=== PATIENT | male | born 1945 | race Caucasian/White ===

== ENCOUNTER 2019-07-08 08:59 | Emergency (ER) | payer OTHER ==
--- NOTE | 2019-07-08 10:16 | RAD REPORT ---
EXAM DESCRIPTION: CT - Head Brain Wo Cont - 07/08/2019 9:18 am CLINICAL HISTORY: Trip and fall, head trauma COMPARISON: None. TECHNIQUE: Axial 5 mm thick images of the head were obtained without IV contrast. All CT scans are performed using dose optimization technique as appropriate and may include automated exposure control or mA/KV adjustment according to patient size. FINDINGS: No intracranial hemorrhage, mass, edema or shift of mid-line structures. No acute infarcti on changes seen. No cortical edema or sulcal effacement. Moderate atrophy changes are present. Mild t o moderate chronic ischemic changes are seen. Ventricles are in proportion to volume loss. Dense jayson rial tree calcifications are present. Mastoid air cells are clear. Patchy mucosal thickening in the paranasal sinuses. All No acute bony findings. Small midline posterior parietal scalp hematoma. Underlying bone is intact. IMPRESSION: No hemorrhage, mass or acute intracranial finding. Patient has moderate atrophy changes and mild to moderate chronic ischemic change. Chronic ischemic change can mask nonhemorrhagic CVA. Follow-up MR imaging could be performed if an is chemic event is suspected to have triggered the fall. Posterior midline scalp hematoma with underlying bone intact.
--- NOTE | 2019-07-08 10:58 | ER ---
Nurse's Notes [facility] Name: Poncho Hardy Jr Age: 74 yrs Sex: Male : 1945 Arrival Date: 07/08/2019 Time: 09:02 Bed 8 Private MD: Diagnosis: Laceration without foreign body of scalp Presentation: 07/08 09:04 Presenting complaint: EMS states: pt was at the [facility] in the bathroom, tripped over tw2 his feet, fell hit the back of his head on the floor, [facility] reports 7cm laceration to the back of head, no loc. Transition of care: patient was not received from another setting of care. Onset of symptoms was July 08, 2019. Risk Assessment: Do you want to hurt yourself or someone else? Patient reports no desire to harm self or others. Initial Sepsis Screen: Does the patient meet any 2 criteria? No. Patient's initial sepsis screen is negative. Does the patient have a suspected source of infection? No. Patient's initial sepsis screen is negative. Care prior to arrival: head wrapped with francois. 09:04 Method Of Arrival: EMS: [facility] tw2 09:04 Acuity: BALDEMAR 3 tw2 Triage Assessment: 09:07 General: Appears in no apparent distress. Behavior is calm, cooperative, appropriate tw2 for age. Pain: Complains of pain in scalp. Historical: - Allergies: 10:06 No Known Allergies; tw2 - Home Meds: 10:06 amlodipine 10 mg tab 1 tab once daily [Active]; atorvastatin 80 mg oral tab 1 tab once tw2 daily [Active]; cyanocobalamin (vitamin B-12) 500 mcg oral tab [Active]; divalproex 500 mg oral TbEC 1 tab 3 times per day [Active]; ergocalciferol (vitamin D2) 50,000 unit oral cap 1 cap once wkly [Active]; glipizide 10 mg Oral tab 1 tab once daily [Active]; lisinopril 40 mg Oral tab 1 tab once daily [Active]; metformin 500 mg Oral Tb24 1 tab once daily [Active]; metoprolol tartrate 100 mg Oral tab 1 tab 2 times per day [Active]; aspirin 81 mg Oral chew 1 tab once daily [Active]; - PMHx: 10:06 CVA; Hyperlipidemia; Hypertension; AAA; Bipolar disorder; Diabetes - NIDDM; tw2 - Immunization history:: Adult Immunizations. - Social history:: Smoking status: . - Ebola Screening: : Patient denies travel to an Ebola-affected area in the 21 days before illness onset. Screenin:07 Abuse screen: Denies threats or abuse. Nutritional screening: No deficits noted. tw2 Tuberculosis screening: No symptoms or risk factors identified. Fall Risk Secondary diagnosis (15 points) impaired mobility. Assessment: 09:04 General: Appears in no apparent distress. Behavior is calm, cooperative, appropriate tw2 for age. Pain: Complains of pain in scalp. Neuro: Level of Consciousness is awake, alert, obeys commands, Oriented to person, place, time, situation. Cardiovascular: Heart tones S1 S2 Patient's skin is warm and dry. Respiratory: Airway is patent Respiratory effort is even, unlabored, Respiratory pattern is regular, symmetrical, Breath sounds are clear bilaterally. GI: No signs and/or symptoms were reported involving the gastrointestinal system. Abdomen is flat, Bowel sounds present X 4 quads. : No signs and/or symptoms were reported regarding the genitourinary system. EENT: No signs and/or symptoms were reported regarding the EENT system. Derm: No signs and/or symptoms reported regarding the dermatologic system. Musculoskeletal: Range of motion: intact in all extremities. Injury Description: Laceration sustained to scalp is clean, 2.6 to 7.5 cm long, was sustained 30-60 minutes ago. 10:06 Reassessment: Patient appears in no apparent distress at this time. No changes from tw2 previously documented assessment. Patient and/or family updated on plan of care and expected duration. Pain level reassessed. Patient is alert, oriented x 3, equal unlabored respirations, skin warm/dry/pink. 10:38 Reassessment: Patient appears in no apparent distress at this time. No changes from tw2 previously documented assessment. Patient and/or family updated on plan of care and expected duration. Pain level reassessed. Patient is alert, oriented x 3, equal unlabored respirations, skin warm/dry/pink. 10:57 Reassessment: Patient appears in no apparent distress at this time. No changes from tw2 previously documented assessment. Patient and/or family updated on plan of care and expected duration. Pain level reassessed. Patient is alert, oriented x 3, equal unlabored respirations, skin warm/dry/pink. Vital Signs: 09:06 BP 142 / 64; Pulse 64; Resp 17; Temp 97.9(TE); Pulse Ox 94% on R/A; Weight 90.72 kg tw2 (R); Height 5 ft. 10 in. (177.80 cm); Pain 8/10; 10:06 BP 137 / 63; Pulse 62; Resp 17; Pulse Ox 96% on R/A; tw2 10:38 BP 149 / 70; Pulse 63; Resp 17; Pulse Ox 96% on R/A; tw2 09:06 Body Mass Index 28.70 (90.72 kg, 177.80 cm) tw2 ED Course: 09:02 Patient arrived in ED. jl7 09:04 Shantel Boyle, RN is Primary Nurse. tw2 09:04 Bed in low position. Call light in reach. Side rails up X2. quality assurance monitor body on. Pulse tw2 ox on. NIBP on. 09:06 Triage completed. tw2 09:06 Cosme Lovell PA is PHCP. tw2 09:06 Arm band placed on. tw2 09:27 CT Head Brain wo Cont In Process Unspecified. EDMS 10:37 cleaning of wound and stapling, pt tolerated well. Patient did not have IV access tw2 during this emergency room visit. Dressings: Francois x 1 scalp 4X4s X 4; scalp. 10:47 Anand Lainez MD is Attending Physician. jr8 Administered Medications: No medications were administered Outcome: 10:46 Discharge ordered by . jr8 10:56 Discharged to home via wheelchair, with family. tw2 10:56 Condition: stable 10:56 Discharge instructions given to patient, family, Instructed on discharge instructions, follow up and referral plans. medication usage, wound care, staple removal, return to PCP or ER for suture removal in 10 days. Demonstrated understanding of instructions, follow-up care, medications, wound care, Prescriptions given X 1. 10:57 Patient left the ED. tw2 Signatures: Dispatcher [employer] EDMS Cosme Lovell PA PA jr8 Shantel Boyle RN RN tw2 Jodi Hyde RN RN jl7
--- NOTE | 2019-07-08 10:58 | EDPHYS ---
Physician Documentation [facility] Name: Poncho Hardy Jr Age: 74 yrs Sex: Male : 1945 Arrival Date: 07/08/2019 Time: 09:02 Bed 8 Private MD: ED Physician Anand Lainez HPI: 07/08 10:39 This 74 yrs old Male presents to ER via EMS with complaints of Fall Injury. jr8 10:39 Details of fall: The patient fell from an upright position, while standing. Onset: The jr8 symptoms/episode began/occurred acutely, today. Associated injuries: The patient sustained injury to the head, laceration, swelling, tenderness. Severity of symptoms: At their worst the symptoms were moderate, in the emergency department the symptoms are unchanged. The patient has not experienced similar symptoms in the past. The patient has not recently seen a physician. Stated that he misstepped and fell backwards hitting back of head causing laceration. Denies LOC . Historical: - Allergies: 10:06 No Known Allergies; tw2 - Home Meds: 10:06 amlodipine 10 mg tab 1 tab once daily [Active]; atorvastatin 80 mg oral tab 1 tab once tw2 daily [Active]; cyanocobalamin (vitamin B-12) 500 mcg oral tab [Active]; divalproex 500 mg oral TbEC 1 tab 3 times per day [Active]; ergocalciferol (vitamin D2) 50,000 unit oral cap 1 cap once wkly [Active]; glipizide 10 mg Oral tab 1 tab once daily [Active]; lisinopril 40 mg Oral tab 1 tab once daily [Active]; metformin 500 mg Oral Tb24 1 tab once daily [Active]; metoprolol tartrate 100 mg Oral tab 1 tab 2 times per day [Active]; aspirin 81 mg Oral chew 1 tab once daily [Active]; - PMHx: 10:06 CVA; Hyperlipidemia; Hypertension; AAA; Bipolar disorder; Diabetes - NIDDM; tw2 - Immunization history:: Adult Immunizations. - Social history:: Smoking status: . - Ebola Screening: : Patient denies travel to an Ebola-affected area in the 21 days before illness onset. ROS: 10:39 Eyes: Negative for injury, pain, redness, and discharge, ENT: Negative for injury, jr8 pain, and discharge, Neck: Negative for injury, pain, and swelling, Cardiovascular: Negative for chest pain, palpitations, and edema, Respiratory: Negative for shortness of breath, cough, wheezing, and pleuritic chest pain, Abdomen/GI: Negative for abdominal pain, nausea, vomiting, diarrhea, and constipation, Back: Negative for injury and pain, MS/Extremity: Negative for injury and deformity, Neuro: Negative for headache, weakness, numbness, tingling, and seizure. 10:39 Skin: Positive for laceration(s), of the scalp. Exam: 10:39 Eyes: Pupils equal round and reactive to light, extra-ocular motions intact. Lids and jr8 lashes normal. Conjunctiva and sclera are non-icteric and not injected. Cornea within normal limits. Periorbital areas with no swelling, redness, or edema. ENT: Nares patent. No nasal discharge, no septal abnormalities noted. Tympanic membranes are normal and external auditory canals are clear. Oropharynx with no redness, swelling, or masses, exudates, or evidence of obstruction, uvula midline. Mucous membranes moist. Neck: Trachea midline, no thyromegaly or masses palpated, and no cervical lymphadenopathy. Supple, full range of motion without nuchal rigidity, or vertebral point tenderness. No Meningismus. Cardiovascular: Regular rate and rhythm with a normal S1 and S2. No gallops, murmurs, or rubs. Normal PMI, no JVD. No pulse deficits. Respiratory: Lungs have equal breath sounds bilaterally, clear to auscultation and percussion. No rales, rhonchi or wheezes noted. No increased work of breathing, no retractions or nasal flaring. Abdomen/GI: Soft, non-tender, with normal bowel sounds. No distension or tympany. No guarding or rebound. No evidence of tenderness throughout. Back: No spinal tenderness. No costovertebral tenderness. Full range of motion. Skin: Warm, dry with normal turgor. Normal color with no rashes, no lesions, and no evidence of cellulitis. MS/ Extremity: Pulses equal, no cyanosis. Neurovascular intact. Full, normal range of motion. Neuro: Awake and alert, GCS 15, oriented to person, place, time, and situation. Cranial nerves II-XII grossly intact. Motor strength 5/5 in all extremities. Sensory grossly intact. Cerebellar exam normal. Normal gait. 10:39 Head/face: Noted is a laceration(s), that is deep, that is linear, 7.5 cm(s), of the back of head. Vital Signs: 09:06 BP 142 / 64; Pulse 64; Resp 17; Temp 97.9(TE); Pulse Ox 94% on R/A; Weight 90.72 kg tw2 (R); Height 5 ft. 10 in. (177.80 cm); Pain 8/10; 10:06 BP 137 / 63; Pulse 62; Resp 17; Pulse Ox 96% on R/A; tw2 10:38 BP 149 / 70; Pulse 63; Resp 17; Pulse Ox 96% on R/A; tw2 09:06 Body Mass Index 28.70 (90.72 kg, 177.80 cm) tw2 Laceration: 10:39 Wound Repair of 7.5cm ( 3.0in ) subcutaneous laceration to scalp. Distal jr8 neuro/vascular/tendon intact. Wound prep: Extensive cleansing with hibiclenz, Wound irrigation with saline, Wound explored extensively. Skin closed with 6 romy [place] using staple gun. Patient tolerated well. MDM: 09:09 Patient medically screened. jr8 10:39 Data reviewed: vital signs, nurses notes, and as a result, I will discharge patient. jr8 Data interpreted: Pulse oximetry: on room air is 96 %. Interpretation: normal. Counseling: I had a detailed discussion with the patient and/or guardian regarding: the historical points, exam findings, and any diagnostic results supporting the discharge/admit diagnosis, radiology results, the need for outpatient follow up, a family practitioner, to return to the emergency department if symptoms worsen or persist or if there are any questions or concerns that arise at home. 07/08 09:04 Order name: CT Head Brain wo Cont; Complete Time: 10:17 jl7 07/08 10:19 Order name: Setup Suture Tray; Complete Time: 10:17 tw2 07/08 10:19 Order name: Dressing - Wound; Complete Time: 10:33 tw2 Administered Medications: No medications were administered Disposition: 18:18 Co-signature as Attending Physician, Aannd Lainez MD Did not see or evaluate patient. ps1 Signing chart for administrative purposes. Not an endorsement of care provided. . Disposition: 07/08/19 10:46 Discharged to Home. Impression: Laceration without foreign body of scalp. - Condition is Stable. - Discharge Instructions: Laceration Care, Adult. - Prescriptions for Keflex 500 mg Oral Capsule - take 1 capsule by ORAL route every 8 hours for 5 days; 15 capsule. - Medication Reconciliation Form, Thank You Letter, Antibiotic Education, Prescription Opioid Use form. - Follow up: Private Physician; When: 2 - 3 days; Reason: Recheck today's complaints, Continuance of care, Re-evaluation by your physician. - Problem is new. - Symptoms have improved. Signatures: Dispatcher [employer] EDMS Cosme Lovell PA PA jr8 Shantel Boyle RN RN tw2 Anand Lainez MD MD ps1 Corrections: (The following items were deleted from the chart) 10:57 10:46 07/08/2019 10:46 Discharged to Home. Impression: Laceration without foreign body tw2 of scalp. Condition is Stable. Forms are Medication Reconciliation Form, Thank You Letter, Antibiotic Education, Prescription Opioid Use. Follow up: Private Physician; When: 2 - 3 days; Reason: Recheck today's complaints, Continuance of care, Re-evaluation by your physician. Problem is new. Symptoms have improved. jr8
[2019-07-08 11:07] VITALS: TEMP 97.9
[2019-07-08 11:08] VITALS: O2SAT 96
[2019-07-08 11:09] VITALS: BP 149/70
== END 2019-07-08 10:57 | disposition home or self-care (01) ==
LOC: ER 08:59
PROC: 0JQ00ZZ Repair Scalp Subcutaneous Tissue and Fascia, Open Approach (ICD-10-PCS; principal; 2019-07-08)
DX: S01.01XA Laceration without foreign body of scalp, initial encounter (principal); W18.39XA Other fall on same level, initial encounter; Y93.89 Activity, other specified; Y92.9 Unspecified place or not applicable; I10 Essential (primary) hypertension; E78.5 Hyperlipidemia, unspecified; E11.9 Type 2 diabetes mellitus without complications; Z79.82 Long term (current) use of aspirin
CPT/HCPCS: 70450; 99284